=== PATIENT | female | born 2000 | race Hispanic/Latino ===

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

== ENCOUNTER 2022-06-15 15:44 | Emergency (ER) | payer OTHER ==
[~2022-06-15] VITALS: Ht 152.4 cm; Wt 54.0 kg
[~2022-06-15 15:44] MED LIST: ONDANSETRON ODT8 MG PO; SUMATRIPTAN SUC50 MG PO
[2022-06-15] MEDS ORDERED: SODIUM CHLORIDE 0.9% 1000ML 1,000 ML IV STA (15:58)
[2022-06-15] MEDS ORDERED: KETOROLAC TROMETHAMINE 30 MG/ML VIAL IV ONE (16:00)
[2022-06-15] MEDS ORDERED: FAMOTIDINE 20 MG/2 ML VIAL IV ONE ×2 (16:00→16:22)
[2022-06-15] MEDS ORDERED: ONDANSETRON HCL INJ 2MG/ML 2ML 2 MG/ML VIAL IV ONE (16:00)
[2022-06-15] MEDS ORDERED: IOPAMIDOL 370 MG/ML 100 ML INFUS..BTL INJ ONE (16:15)
[2022-06-15] MEDS ORDERED: ONDANSETRON HCL INJ 2MG/ML 2ML 2 MG/ML VIAL ONE (16:21)
[2022-06-15] MEDS ORDERED: KETOROLAC TROMETHAMINE 30 MG/ML VIAL ONE (16:22)
[2022-06-15] MEDS ORDERED: SODIUM CHLORIDE 0.9% 1000ML 1,000 ML ONE (16:22)
[2022-06-15] MEDS ORDERED: OMEPRAZOLE40 MG PO (16:42)
[2022-06-15] MEDS ORDERED: ONDANSETRON ODT4 MG PO (16:42)
== END 2022-06-15 17:25 | disposition home or self-care (01) ==
LOC: FSED 15:56
DX: R10.13 Epigastric pain (principal); R11.0 Nausea; K21.9 Gastro-esophageal reflux disease without esophagitis; J45.909 Unspecified asthma, uncomplicated
CPT/HCPCS: 74177; 80048; 80076; 81003; 81025; 85025; 96374; 96375; 99284; J1885; J2405; J7030; Q9967

== ENCOUNTER 2022-09-05 13:25 | Emergency (ER) | payer OTHER ==
[~2022-09-05] VITALS: Ht 152.4 cm; Wt 52.4 kg
[~2022-09-05 13:25] MED LIST changes: +OMEPRAZOLE40 MG PO; +ONDANSETRON ODT4 MG PO
[2022-09-05] MEDS ORDERED: ONDANSETRON HCL INJ 2MG/ML 2ML 2 MG/ML VIAL IV STA (14:07)
[2022-09-05] MEDS ORDERED: FAMOTIDINE 20 MG/2 ML VIAL IV STA (14:07)
[2022-09-05] MEDS ORDERED: SODIUM CHLORIDE 0.9% 1000ML 1,000 ML IV SCH (14:15)
[2022-09-05] MEDS ORDERED: FAMOTIDINE 20 MG/2 ML VIAL IV ONE (14:34)
[2022-09-05] MEDS ORDERED: ONDANSETRON HCL INJ 2MG/ML 2ML 2 MG/ML VIAL ONE (14:34)
[2022-09-05] MEDS ORDERED: ONDANSETRON ODT4 MG PO (15:47)
[2022-09-05] MEDS ORDERED: PANTOPRAZOLE SO40 MG PO (15:48)
== END 2022-09-05 15:02 | disposition home or self-care (01) ==
LOC: FSED 13:58
DX: R50.9 Fever, unspecified (principal); K29.70 Gastritis, unspecified, without bleeding; R11.2 Nausea with vomiting, unspecified; K21.9 Gastro-esophageal reflux disease without esophagitis
CPT/HCPCS: 80048; 80076; 81003; 81025; 85025; 96374; 96375; 99284; J2405

== ENCOUNTER 2023-03-22 17:38 | Emergency (ER) | payer OTHER ==
[~2023-03-22] VITALS: Ht 154.9 cm; Wt 52.2 kg
[~2023-03-22 17:38] MED LIST changes: +PANTOPRAZOLE SO40 MG PO
[2023-03-22] MEDS ORDERED: IBUPROFEN 600 MG TAB PO STA (19:17)
[2023-03-22] MEDS ORDERED: ONDANSETRON HCL 4 MG ORAL DISINTEGRATING TAB PO ONE (19:30)
[2023-03-22] MEDS ORDERED: ONDANSETRON HCL 4 MG ORAL DISINTEGRATING TAB ONE (20:12)
[2023-03-22] MEDS ORDERED: KETOROLAC TROMETHAMINE 30 MG/ML VIAL IM STA (21:44)
[2023-03-22 21:45] VITALS: O2SAT 99
[2023-03-22] MEDS ORDERED: ONDANSETRON ODT4 MG PO (21:45)
== END 2023-03-22 22:10 | disposition home or self-care (01) ==
LOC: FSED 18:32
DX: R11.2 Nausea with vomiting, unspecified (principal); J10.1 Influenza due to other identified influenza virus with other respiratory manifestations; G43.909 Migraine, unspecified, not intractable, without status migrainosus; K21.9 Gastro-esophageal reflux disease without esophagitis; J45.909 Unspecified asthma, uncomplicated
CPT/HCPCS: 81003; 81025; 83518; 87400; 99283; J1885; Q0162